=== PATIENT | male | born 1945 | race Caucasian/White ===

== ENCOUNTER 2023-10-08 14:02 | Outpatient (CLI) | payer OTHER, SELFPAY ==
--- NOTE | 2023-10-08 14:11 | ECG_ITS ---
Test Date: 2023-10-08 14:22:02 Measurements Intervals [place] Rate: 71 P: 15 [place]: 175 QRS: 32 QRSD: 127 T: 24 QT: 400 QTc: 437 Interpretive Statements SINUS RHYTHM RIGHT BUNDLE BRANCH BLOCK [120+ ms QRS DURATION, UPRIGHT V1, 40+ ms S IN I/aVL/V4/V5/V6] No previous ECG available for comparison Electronically Signed On 10-09-2023 12:33:28 CDT by Jono Rodarte M.D.
== END 2023-10-08 14:03 | disposition home or self-care (01) ==
LOC: ANHCARD 14:04
PROVIDERS: PCP Emergency Medicine; Visit Provider Emergency Medicine
DX: R00.2 Palpitations (principal); I45.10 Unspecified right bundle-branch block
CPT/HCPCS: 93005